=== PATIENT | male | born 1960 | race Caucasian/White ===

== ENCOUNTER 2020-05-06 16:39 | Emergency (ER) | payer OTHER ==
[~2020-05-06] VITALS: Ht 170.2 cm; Wt 93.1 kg
[2020-05-06 16:49] VITALS: BP 132/78
[2020-05-06] MEDS: HYDROcodone/APAP 5/325 TABLET PO ONE (18:00)
[2020-05-06] MEDS ORDERED: HYDROcodone/APAP 5/325 TABLET ONE (18:05)
--- NOTE | 2020-05-06 18:14 | NUR ---
PT REFUSED PAIN MEDS. TECH AT BEDSIDE TO PLACE SPLINT. POC IS DC
--- NOTE | 2020-05-06 18:45 | NUR ---
SPLINT BY TECH. +DISTAL SENSATION, PINK. DC EDUCATION PROVIDED PT DEMONSTRATES UNDERSTANDING. PT AMBULATED STEADILY TO DC USING CRUTCHES. [facility].
== END 2020-05-06 18:46 | disposition home or self-care (01) ==
LOC: ED 18:33
DX: S82.832A Other fracture of upper and lower end of left fibula, initial encounter for closed fracture (principal); W01.0XXA Fall on same level from slipping, tripping and stumbling without subsequent striking against object, initial encounter; Y93.89 Activity, other specified; Y92.098 Other place in other non-institutional residence as the place of occurrence of the external cause; Y99.8 Other external cause status
CPT/HCPCS: 29125; 29515; 99283

== ENCOUNTER 2020-05-17 08:21 | Day surgery (SDC) | payer OTHER ==
[~2020-05-17] VITALS: Ht 167.6 cm; Wt 93.2 kg
[2020-05-17] MEDS ORDERED: NO HOME MEDS (09:22)
[2020-05-17] MEDS ORDERED: CHLORHEXIDINE 15 ML UDC ONE (09:23)
[2020-05-17] MEDS ORDERED: LACTATED RINGERS 1,000 ML IV SCH (09:30)
[2020-05-17] MEDS ORDERED: CHLORHEXIDINE 15 ML UDC MM ONE (09:30)
[2020-05-17 09:45] VITALS: BP 118/70
[2020-05-17] MEDS ORDERED: FENTANYL PF 100 MCG/2ML ONE ×2 (09:54→11:26)
[2020-05-17] MEDS ORDERED: MIDAZOLAM 1 MG/ML, 2ML ONE (09:54)
[2020-05-17] MEDS ORDERED: EPINEPHRINE 1 MG/ML, 1ML ONE (10:10)
[2020-05-17] MEDS ORDERED: BUPIVACAINE/PF 0.5% ONE (10:10)
[2020-05-17] MEDS ORDERED: LIDOCAINE-MPF 1%, 2ML ONE (10:24)
[2020-05-17] MEDS ORDERED: PROPOFOL 10 MG/ML, 20ML ONE (10:24)
[2020-05-17] MEDS ORDERED: DEXAMETHASONE 4 MG/ML, 1ML ONE (10:24)
[2020-05-17] MEDS ORDERED: CEFAZOLIN 1,000 MG ONE (10:24)
[2020-05-17] MEDS ORDERED: ONDANSETRON 2MG/ML, 2ML ONE (10:24)
[2020-05-17] MEDS ORDERED: MEPERIDINE/PF 25MG/0.5ML IVPush PRN (10:30)
[2020-05-17] MEDS ORDERED: HYDROcodone/APAP 7.5-325MG/15ML UDC PO PRN (10:30)
[2020-05-17] MEDS ORDERED: OXYcodone 5 MG/5 ML ORAL.SOL UDC PO PRN (10:30)
[2020-05-17] MEDS ORDERED: HYDROmorphone 1 MG/ML, 1ML INJ IVPush PRN (10:30)
[2020-05-17] MEDS ORDERED: KETOROLAC 30 MG/1 ML IVPush PRN (10:30)
[2020-05-17] MEDS ORDERED: PROMETHAZINE 25 MG/ML, 1ML IVPush PRN (10:30)
[2020-05-17] MEDS ORDERED: BUPIVACAINE/PF 0.5% INFIL ONE (10:43)
[2020-05-17] MEDS ORDERED: KETOROLAC 30 MG/1 ML ONE (11:27)
[2020-05-17] MEDS ORDERED: OXYcodone 5 MG/5 ML ORAL.SOL UDC ONE (11:27)
[2020-05-17] MEDS: FENTANYL PF 100 MCG/2ML IV PRN ×2 (11:29→11:35)
== END 2020-05-17 14:35 | disposition home or self-care (01) ==
LOC: OUT 08:21
PROVIDERS: ATTEND Orthopaedic Surgery
DX: S82.62XA Displaced fracture of lateral malleolus of left fibula, initial encounter for closed fracture (principal); Z20.828 Contact with and (suspected) exposure to other viral communicable diseases; Z79.899 Other long term (current) drug therapy; Z82.61 Family history of arthritis; X58.XXXA Exposure to other specified factors, initial encounter; Y93.89 Activity, other specified; Y92.89 Other specified places as the place of occurrence of the external cause; Y99.8 Other external cause status
CPT/HCPCS: 27792; 73610; 87635; 93005; C1713; J0171; J0690; J1100; J1885; J2250; J2405; J2704; J3010; J7120; 76000